=== PATIENT | female | born 1980 | race Caucasian/White ===

== ENCOUNTER → 2020-01-07 | Outpatient (REF) | payer OTHER, SELFPAY | LOC: M LAB REF 18:24 | PROVIDERS: ATTEND Dermatology | DX: D22.39 Melanocytic nevi of other parts of face (principal); D22.5 Melanocytic nevi of trunk ==

== ENCOUNTER 2023-08-10 08:38 | Day surgery (SDC) | payer OTHER ==
[~2023-08-10] VITALS: Ht 165.1 cm; Wt 60.0 kg
[~2023-08-10 08:38] MED LIST: CETI5SOL3 PO; HAIR1CHW2 PO; NS 1,000 ML IV ONE
[2023-08-10 11:18] VITALS: TEMP 97.6
[2023-08-10 11:35] VITALS: BP 110/72; O2SAT 100
== END 2023-08-10 11:44 | disposition home or self-care (01) ==
LOC: M OPP 08:38
PROVIDERS: ATTEND Internal Medicine Gastroenterology
DX: Z12.11 Encounter for screening for malignant neoplasm of colon (principal); K63.5 Polyp of colon; Z80.0 Family history of malignant neoplasm of digestive organs; K90.0 Celiac disease; E73.9 Lactose intolerance, unspecified; J45.909 Unspecified asthma, uncomplicated; Z88.8 Allergy status to other drugs, medicaments and biological substances